=== PATIENT | male | born 1995 | race Caucasian/White ===

== ENCOUNTER 2017-02-10 | Inpatient (IN) | payer BC, SELFPAY | END 2017-02-13 16:50 | disposition short-term general hospital (02) | DRG 193 | PROVIDERS: Admitting Provider Internal Medicine Adolescent Medicine; Family Provider Internal Medicine Adolescent Medicine; Visit Provider Internal Medicine Adolescent Medicine | DX: J18.9 Pneumonia, unspecified organism (principal); A40.8 Other streptococcal sepsis; K92.0 Hematemesis; E86.0 Dehydration | CPT/HCPCS: 43235; 31622; 36415; 36569; 71010; 71020; 71260; 80053; 81001; 83088; 85014; 85018; 85025; 86171; 86738; 87040; 87070; 87077; 87186; 87205; 87220; 87450; 87486; 87507; 87581; 87633; 87798; 93005; 93306; 94640; C1751; J0330; J0456; J2405; J2710; P9016; Q9967 ==

== ENCOUNTER → 2017-02-15 | Outpatient (CLI) | payer BC, SELFPAY | DX: A40.3 Sepsis due to Streptococcus pneumoniae (principal); J15.9 Unspecified bacterial pneumonia; E86.0 Dehydration; R50.9 Fever, unspecified; R06.02 Shortness of breath; R19.7 Diarrhea, unspecified | CPT/HCPCS: 87102 ==

== ENCOUNTER → 2022-01-23 19:40 | Outpatient (CLI) | payer BC, SELFPAY | LOC: LAB 19:42 → LAB.DROPOF 01-24 06:10 | PROVIDERS: PCP Nurse Practitioner Family; Visit Provider Nurse Practitioner Family | DX: J02.9 Acute pharyngitis, unspecified (principal) | CPT/HCPCS: 87070 ==

== ENCOUNTER 2022-11-13 08:06 | Emergency (ER) | payer SELFPAY ==
[2022-11-13 08:06] VITALS: BP 127/70; PULSE 97; RESP 18; TEMP 36.8; O2SAT 99; BMI 40.6
--- NOTE | 2022-11-13 08:32 | EXP.UTC ---
Discharge Plan Disposition Patient Disposition: Home, Self-Care Condition: Good Prescriptions Prescriptions: New azithromycin [Zithromax Z-Alexander] 250 mg tablet See Rx Instructions .ROUTE .COMPLEX 5 Days Qty: 6 0RF Rx Instructions: For 250 mg dose pack: take 500 mg today (day 1), then 250 mg for 4 days (days 2-5) prednisone [prednisone] 20 mg tablet 20 mg PO BID 5 Days Qty: 10 0RF benzonatate 100 mg capsule 100 mg PO TID PRN (Reason: cough) Qty: 30 0RF albuterol sulfate [Proventil HFA] 90 mcg/actuation HFA aerosol inhaler 2 inh inhalation Q6H PRN (Reason: shortness of breath or wheezing) Qty: 8.5 0RF guaifenesin [Mucinex] 600 mg tablet extended release 12hr 1,200 mg PO BID PRN (Reason: cough) Qty: 20 0RF Referrals Follow up/Referrals: Provider,Referral, MD [Primary Care Provider] - See instructions Activity Restrictions/Add. Instructions Additional Instructions/Restrictions: Start antibiotic today. Be sure to complete entire prescription even if feeling better Monitor temp. Tylenol every 4 hours as needed and / or ibuprofen every 6 hours as needed ( As long as your primary care physician has told you that it ok to take both. For fever/aches/pains ER if no less than 101 despite Tylenol or Motrin Humidifier/vaporizer or hot steamy shower Inhaler every 4-6 hours as needed like we discussed. If unsure how to use it, ask pharmacist to demonstrate how. Should help open airways and improve cough wheezing, and shortness of breath Mucinex during the day for your cough and cough suppressant only at night. Be sure to drink lots of water. Insurance may not cover a prescriptions for mucinex. Might be cheaper to get 400mg tablets and take 2 tablet in the morning, mid-day and evening with lots of water. *Promethazine DM cough syrup will cause drowsiness. Use only at night. No driving, operating machinery or caring for small children after taking it *Tessalon Perles will not cause drowsiness but use at bedtime to help stop cough so that you may get some rest. *Start steroid tomorrow. Helps with inflammation therefore, cough and wheezing. Follow directions on the package. Reviewed side effects. Patient reports taking them before. Follow up IMMEDIATELY for new or worsening of symptoms OR no noticeable improvement over the next 48-72 hours. 911 immediately for any life threatening symptoms such as chest pain or difficulty breathing Clinical Impressions Clinical Impression: Bronchitis Sinusitis Qualifiers: Sinusitis location: unspecified location Chronicity: unspecified Qualified Code(s): J32.9 - Chronic sinusitis, unspecified Stand Alone Forms Stand Alone Forms: Work/School Release Instructions Patient Instructions: Sinusitis, Acute Bronchitis, DI for Sinusitis [place]charge [place] Yu [facility] [place] General Stated complaint: congestion,sore throat, cough Mode of Arrival: Ambulatory Source of Information: Patient Limitations: No Limitations Time Seen by Provider: 11/13/22 08:32 Description of Symptoms (Recalled from Triage Doc. by RN): SOB, productive cough, sore throat, BRADEN, and fever HEENT Symptoms (Recalled from RN notes): Yes Resp Symptoms (Recalled from RN notes): No Skin Symptoms (Recalled from RN notes): No MS Symptoms (Recalled from RN notes): No Functional Status (Recalled from RN notes): n/a History of Present Illness Provider Complaint: Patient states that he has been sick since the weekend States that he has been having cough, drainage in the back of his throat with sinus pain and pressure, fever, sore throat and feeling a little short of breath at times States that today he is feeling a little better but still having the cough and at times coughing up some mucous so he came in to get checked Related Data Previous Rx's Medication Instructions Recorded albuterol sulfate 90 mcg/actuation 2 inh inhalation Q6H PRN shortness 11/13/22
[2022-11-13 08:38] LABS: UTC Strep Screen (Rapid) Negative (Negative)
[2022-11-13 09:26] VITALS: BP 127/70; PULSE 97; RESP 18; TEMP 36.8; O2SAT 99
== END 2022-11-13 09:26 | disposition home or self-care (01) ==
PROVIDERS: Emergency Provider Nurse Practitioner
DX: U07.1 COVID-19 (principal); J20.9 Acute bronchitis, unspecified; J01.90 Acute sinusitis, unspecified; F17.210 Nicotine dependence, cigarettes, uncomplicated
CPT/HCPCS: 87635; 87880; 96372; 99204; 99212; G0463; J0696